=== PATIENT | male | born 1990 | race Caucasian/White ===

== ENCOUNTER 2022-11-10 03:57 | Emergency (ER) | payer OTHER, SELFPAY ==
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
[2022-11-10 04:06] VITALS: BP 120/70; BP 143/77; PULSE 100; PULSE 99; RESP 18; TEMP 36.8; O2SAT 95; O2SAT 96; BMI 23.7
[2022-11-10 04:09] VITALS: BP 143/77; PULSE 100; RESP 18; TEMP 36.8; O2SAT 98
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
[2022-11-10 05:22] VITALS: BP 145/86; PULSE 88; RESP 16; TEMP 37; O2SAT 96
--- NOTE | 2022-11-10 05:22 | MHC.EDTECH ---
pt blood drawn ,covid swab collected and sent to lab ,vitals sign taken ,pt was change into hospital attire ,pt left ear lobe was clean with saline and peroxide ,pt was hooked up to quality assurance monitor final ,pt resting in bed ,[place] [employer] at bed side .
[2022-11-10 05:25] LABS: Basophils Absolute Auto 0.1 X10*3/uL (0.0-0.2); Basophils Percent Auto 0.5 % (0-2); Eosinophils Percent Auto 0.1 % (0-4); Hematocrit 45.5 % (42.0-52.0); Hemoglobin 15.5 g/dl (14.0-18.0); Imm Gran Abs Auto 0.11 X10*3/uL (0.00-0.03); Imm Gran Pct Auto 0.6 % (0.0-0.4); Lymphocytes Absolute Auto 1.4 X10*3/uL (1.2-4.9); Lymphocytes Percent Auto 7.1 % (20-40); MANUAL DIFF FLAG NO; Mean Corpuscular HGB Conc 34.1 g/dl (31.0-36.0); Mean Corpuscular Hemoglobin 31.7 pg (27.0-33.0); Mean Platelet Volume 10.6 fL (9.4-12.4); Monocytes Absolute Auto 1.4 X10*3/uL (0.1-1.2); Monocytes Percent Auto 7.2 % (2-11); Neutrophils Absolute Auto 16.8 x10*3/uL (2.0-8.3); Neutrophils Percent Auto 84.5 % (45-73); Platelet Count 288 X10*3/uL (160-400); Red Blood Count 4.89 X10*6/uL (4.60-5.80); Red Cell Distribution Width 12.6 % (11.0-16.0); White Blood Count 19.8 X10*3/uL (4.8-10.8)
[2022-11-10 05:34] VITALS: BP 100/69; PULSE 94; RESP 16; TEMP 36.8; O2SAT 98
[2022-11-10 05:36] LABS: COVID-19 Test Negative (Negative); IDNOW Serial# BCCEAD1C
[2022-11-10 05:37] LABS: Ethanol 78 mg/dL
[2022-11-10 05:40] LABS: Alanine Aminotransferase 28 U/L (0-40); Albumin Level 4.8 g/dL (3.5-5.0); Alkaline Phosphatase 70 U/L (39-117); Anion Gap 19 (12-20); Aspartate Amino Transferase 34 U/L (5-37); Bilirubin Direct 0.2 mg/dL (0.0-0.5); Bilirubin Total 0.5 mg/dL (0.0-1.0); Blood Urea Nitrogen 17 mg/dL (9-16); Calcium 9.5 mg/dL (8.4-10.2); Carbon Dioxide 21 mmol/L (22-29); Chloride 107 mmol/L (96-108); Creatinine Clr Calc Pharmacy 108.5; Estimated Glomerular Filt Rate > 60; Glucose Random 125 mg/dL (60-115); Magnesium 2.3 mg/dL (1.6-2.6); Potassium 4.6 mmol/L (3.3-5.1); Sodium 142 mmol/L (135-145); Total Protein 7.8 g/dL (6.5-8.0)
--- NOTE | 2022-11-10 05:42 | PC.NURSE ---
Pt A&Ox4, GCS 15. ROM and CSM intact x4 extremities. Eyes are PEARRLA. Pt reports no changes in vision or mentation. Bleeding is controlled, bruising and swelling present on the left side of the face. There is a laceration on the forehead and the left ear, as well as some lacerations on the knuckles of his right hand. Pt is going to be transferred for higher level of care. Waiting acceptance and transportation.
--- NOTE | 2022-11-10 05:44 | MHC.EDTECH ---
[facility]'s Transfer Line called @[phone] per ,spoke with Nasima gave patient demographics awaiting a call back at this time. aware
[2022-11-10 06:00] VITALS: BP 138/86; PULSE 91; RESP 16; O2SAT 98
--- NOTE | 2022-11-10 06:03 | MHC.EDTECH ---
Received a call from [facility] @ [phone],spoke with Kimberly Quiros patient was accepted by to the Emergency Dept..LUIS Garcia called @ [phone] for a STAT transfer per request,ETA within 15mins.
--- NOTE | 2022-11-10 06:08 | MHC.EDTECH ---
Jose called @ [phone] and stated its shift change and they would be here in about ten minutes. was made aware and LUIS.
--- NOTE | 2022-11-10 06:26 | PC.NURSE ---
18g IV placed in left forearm. Pt is resting in bed, no changes to neuro status. Waiting transportation to [facility]
[2022-11-10 06:29] VITALS: BP 114/71; PULSE 95; RESP 20; TEMP 36.7; O2SAT 95
--- NOTE | 2022-11-10 06:39 | MHC.EDTECH ---
EMS arrived @ 0637 to transport patient.RN at bedside Nurse to Nurse [phone]
== END 2022-11-10 06:58 | disposition short-term general hospital (02) ==
PROVIDERS: Emergency Provider Emergency Medicine; PCP Internal Medicine
DX: S02.40FA Zygomatic fracture, left side, initial encounter for closed fracture (principal); S06.6XAA Traumatic subarachnoid hemorrhage with loss of consciousness status unknown, initial encounter; S01.312A Laceration without foreign body of left ear, initial encounter; S00.83XA Contusion of other part of head, initial encounter; Y04.2XXA Assault by strike against or bumped into by another person, initial encounter; Y93.9 Activity, unspecified; Y92.019 Unspecified place in single-family (private) house as the place of occurrence of the external cause; Y99.9 Unspecified external cause status; Z20.822 Contact with and (suspected) exposure to COVID-19
CPT/HCPCS: 36415; 70450; 70486; 72125; 80048; 80076; 82077; 83735; 85025; 87635; 99285